=== PATIENT | female | born 1970 | race Caucasian/White ===

== ENCOUNTER 2018-09-02 21:51 | Emergency (ER) | payer OTHER, SELFPAY ==
[2018-09-02 21:54] VITALS: BP 128/80; PULSE 102; RESP 20; TEMP 36.8; O2SAT 99
[2018-09-02 21:56] VITALS: PULSE 102; RESP 20; TEMP 36.8; O2SAT 99; BMI 39.0
[2018-09-02] MEDS: ALBUTEROL/IPRATROPIUM 3 ML AMPUL INH ×2 (22:04→23:10)
[2018-09-02 22:05] VITALS: PULSE 100; RESP 20; O2SAT 99
--- NOTE | 2018-09-02 22:09 | ED_ITS ---
HPI - URI/Sore Throat General Chief Complaint: Upper Respiratory Symptoms Stated Complaint: Asthma Time Seen by Provider: 09/02/18 21:55 Source: patient Mode of arrival: ambulatory Limitations: no limitations History of Present Illness HPI Narrative: Patient is a 48-year-old female with a history of asthma who uses daily inhalers and occasional rescue inhaler here for evaluation of wheezing which she describes as an asthma exacerbation. She states the symptoms started approximately 5 days ago but has been worsening since then. She has been using her home inhalers and nebulizer without much improvement. No fevers. Has a nonproductive cough. Has been hospitalized in the past for her asthma but no prior intubations. Related Data Home Medications Medication Instructions Recorded Confirmed AZELASTINE HYDROCHLORIDE (ASTELIN) 2 puff UNK BID #0 01/18/11 esomeprazole magnesium [Nexium] 40 mg PO BID #0 01/18/11 fexofenadine 180 mg PO Q DAY #0 01/18/11 fluticasone 2 spray INTRANASAL BID #0 01/18/11 fluticasone-salmeterol [Advair 1 puff BIDRT #0 01/18/11 Diskus] levalbuterol tartrate [Xopenex HFA] 1 puff INH PRN #0 01/18/11 montelukast [Singulair] 10 mg PO QDAY #0 01/18/11 olopatadine [Patanol] 5 ml OP PRN #0 01/18/11 Previous Rx's Medication Instructions Recorded dexamethasone 12 mg PO .once #3 tab 09/03/18 Allergies Allergy/AdvReac Type Severity Reaction Status Date / Time Penicillins Allergy Mild Verified 09/02/18 22:13 Sulfa (Sulfonamide Allergy Mild Verified 09/02/18 22:13 Antibiotics) Review of Systems Constitutional Denies fatigue, Denies fever(s) and Denies headache(s) ENT Ears, Nose, Mouth, and Throat: Denies headache(s) Cardiovascular Denies chest pain and Reports dyspnea Respiratory Reports cough, Denies excessive phlegm production, Reports dyspnea and Reports wheezing Gastrointestinal Gastrointestinal: Denies abdominal pain, Denies nausea and Denies vomiting Musculoskeletal Denies myalgias and Denies arthralgias Integumentary/Breasts Denies rash Neurologic Denies headache(s) Endocrine Denies fatigue Hematologic/Lymphatic Comments: Not on anticoagulation Allergic/Immunologic Denies urticaria and Reports wheezing PFSH Medical History Asthma (Acute) Surgical History History of ankle surgery (Acute) Social History lives independently: Yes Smoking Status: Never smoker Exam Initial Vital Signs Initial Vital Signs: Vital Signs Temperature 98.3 F 09/02/18 21:54 Pulse Rate 102 H 09/02/18 21:54 Respiratory Rate 20 09/02/18 21:54 Blood Pressure 128/80 09/02/18 21:54 Pulse Oximetry 99 09/02/18 21:54 Const General: cooperative, well developed, well groomed and No acute distress Orientation: alert, awake and oriented x3 HENMT Head: normal to inspection, normocephalic and atraumatic Resp Effort & Inspection: cough, no grunting, labored, no retractions, tachypneic and no use of accessory muscles Auscultation: wheezes expiratory wheezes, lower bilaterally and upper bilaterally Cardio Rate: tachycardic Rhythm: regular rhythm Pulses: radial pulses present GI Inspection: non-distended Palpation: soft Skin General: no rashes or lesions noted Lesions: no lesions Rashes: no rashes Neuro General: alert, awake and oriented x3 Extrem General: normal to inspection and capillary refill normal Psych Appearance: grossly normal and well kempt Course Orders Ordered: Discontinued Medications Albuterol/Ipratropium (Duoneb) 3 ml INH NOW ONE Stop: 09/02/18 22:03 Last Admin: 09/02/18 22:04 Dose: 3 ml Albuterol/Ipratropium (Duoneb) 3 ml INH NOW ONE Stop: 09/02/18 22:10 Albuterol/Ipratropium (Duoneb) 3 ml INH NOW ONE Stop: 09/02/18 22:11 Last Admin: 09/02/18 22:31 Dose: Albuterol/Ipratropium (Duoneb) 3 ml INH NOW ONE Stop: 09/02/18 23:11 Last Admin: 09/02/18 23:10 Dose: 3 ml Dexamethasone (Decadron) 10 mg PO NOW ONE Stop: 09/02/18 22:10 Last Admin: 09/02/18 22:46 Dose: 10 mg Vital Signs - 8 hr 09/02/18 21:54 09/02/18 21:56 09/02/18 22:05 Temperature 98.3 F 98.3 F Pulse Rate 102 H 102 H 100 H Respiratory Rate 20 20 20 Blood Pressure Blood Pressure [Right Arm] 128/80 Pulse Oximetry 99 99 99 09/03/18 00:18 Temperature Pulse Rate 118 H Respiratory Rate 18 Blood Pressure 124/78 Blood Pressure [Right Arm] Pulse Oximetry 97 MDM - URI/Sore Throat MDM Narrative Medical decision making narrative: patient was given nebulizers and steroids here in the emergency department. She states that she felt much better after the administration of these medications. Patient is afebrile. Her lungs are clear after the nebulizer. Has a nonproductive cough. Will hold on a chest x- ray is I feel that pneumonia is unlikely. Patient has inhalers at home. No need for antibiotics. She was given return precautions. Will send home with a prescription for Decadron to taking 36 hr. She was given return precautions. She expressed understanding and agreement with this plan. Discharge Plan Departure Patient Disposition: Home Clinical Impression: Asthma exacerbation Discharge Date/Time: 09/03/18 00:19 Interventions: ED Discharge Assessment Last Done: 09/03/18 00:18 Instructions: Asthma -- Adult Activity Restrictions/Additional Instructions: take all of the medication as directed. Call your primary care doctor for follow-up. Use your home nebulizers as directed. Return to the emergency department for any new or worsening symptoms Prescriptions: New dexamethasone 4 mg tablet 12 mg PO .once Qty: 3 RF: 0 No Action fexofenadine 180 MG tablet 180 mg PO Q DAY Qty: 0 RF: 0 fluticasone 16 GM spray,suspension 2 spray Intranasal BID Qty: 0 RF: 0 AZELASTINE HYDROCHLORIDE (ASTELIN) 2 puff UNK BID Qty: 0 RF: 0 fluticasone-salmeterol [Advair Diskus] 500 MCG/50 MCG blister with device 1 puff BIDRT Qty: 0 RF: 0 montelukast [Singulair] 10 MG tablet 10 mg PO QDAY Qty: 0 RF: 0 levalbuterol tartrate [Xopenex HFA] 45 MCG/INH HFA aerosol inhaler 1 puff INH PRN Qty: 0 RF: 0 olopatadine [Patanol] 5 ML drops 5 ml OP PRN Qty: 0 RF: 0 esomeprazole magnesium [Nexium] 40 MG capsule,delayed release(DR/EC) 40 mg PO BID Qty: 0 RF: 0 Stand Alone Forms: Work/School Restrictions
[2018-09-02] MEDS: DEXAMETHASONE 10 MG/ML VIAL PO (22:46)
[2018-09-03 00:18] VITALS: BP 124/78; PULSE 118; RESP 18; O2SAT 97
== END 2018-09-03 00:19 | disposition home or self-care (01) ==
PROVIDERS: Emergency Provider Emergency Medicine; Family Provider Otolaryngology
DX: J45.901 Unspecified asthma with (acute) exacerbation (principal)
CPT/HCPCS: 94150; 94640; 99283; J1100

== ENCOUNTER → 2020-11-03 07:36 | Outpatient (CLI) | payer OTHER, SELFPAY ==
--- NOTE | 2020-11-03 | DI.NM.S_ITS ---
PROCEDURE: NM GASTRIC EMPTYING STUDY RADIOPHARMACEUTICAL: 1.0 mCi Tc-99m sulfur colloid in an egg sandwich. INDICATIONS: Dysphagia, pharyngoesophageal phase,Functional dys TECHNIQUE: A Tc-99m labeled sulfur colloid labeled egg sandwich or oatmeal was served to the patient. Anterior and posterior planar images of the abdomen were obtained at 0 minutes and 30 minutes, then at hourly intervals up to 4 hours. The patient was upright and ambulating during the interval. COMPARISON: None. FINDINGS: The stomach has normal size, morphology, and position. There is normal emptying of solid gastric contents from the stomach by visual inspection. No gastroesophageal reflux is visualized. The percentage of tracer retained at specific time points are as follows: Time point Percent gastric retention Normal range 30 minutes 70% 70% or more 1 hour 51% 30% to 90% 2 hours 35% 60% or less 3 hours 21% 30% or less 4 hours 0% 10% or less IMPRESSION: Gastric emptying is within normal limits. Dictated by: Annita Euceda M.D. on 11/03/2020 at 15:27 Approved by: Annita Euceda M.D. on 11/03/2020 at 15:33
== END ==
PROVIDERS: Family Provider Otolaryngology; Referring Provider Physician Assistant; Visit Provider Physician Assistant
DX: R13.14 Dysphagia, pharyngoesophageal phase (principal); K30 Functional dyspepsia
CPT/HCPCS: 78264; A9541

== ENCOUNTER → 2024-03-23 14:15 | Outpatient (CLI) | payer OTHER, SELFPAY ==
--- NOTE | 2024-03-23 | PATH_ITS ---
[facility] Accession Number: [id number] No. of containers..01 Tissue . 01 Material submitted: . breast - LEFT BREAST . 01 Diagnosis: LEFT BREAST MASS: Benign breast parenchyma with fibroadenomatous features and focal mammary duct ectasia. Negative for epithelial atypia or malignancy. CARLOS 03/25/2024 1117 Local . 01 Comment: As part of routine quality assurance inspector, this case was also reviewed by Dr. Cotton, who agrees with the interpretation. . 01 Electronically signed: . Belinda Nelson MD, Pathologist NPI- [id number] . 01 Gross description: . Received in formalin with two identifiers and no additional designation, are multiple yellow-maya to red-brown soft tissue fragments aggregating to 2.2 x 1.0 x 0.2 cm. Inked blue, filtered, and submitted entirely in cassette A1. . The specimen was removed on 03/23/2024 at 1529 hours, time in formalin not provided, cold ischemic time cannot be calculated, total fixation time is approximately 26 hours. ([id number]) /CARLOS 03/24/2024 0831 Local . 01 Pathologist provided ICD-10: N60.49 . 01 CPT . 008383 Performed at: [address] [facility], [place], [place] [id number] MD Jairon Koch MD Phone: [phone]
--- NOTE | 2024-03-23 | DI.MG.S_ITS ---
UNILATERAL LEFT DIGITAL DIAGNOSTIC MAMMOGRAM POST-PROCEDURE IMAGING FOR MARKER PLACEMENT: 03/23/2024 CLINICAL: Post left breast ultrasound biopsy, clip placment imaging. Comparison is made to exams dated: 03/09/2024 mammogram - [facility], 12/11/2017 mammogram, and 01/04/2023 mammogram - [facility]. There are scattered areas of fibroglandular density in the left breast (category b / 25%-50% glandular tissue). There is a marker clip is slightly anterior to the biopsied mass. 10 o'clock, middle depth central to the nipple seen on the craniocaudal view only. IMPRESSION: POST PROCEDURE MAMMOGRAM FOR MARKER PLACEMENT There was a successful marker clip placement in the left breast middle depth central to the nipple seen on the craniocaudal view only. Based on the Tyrer Cuzick model (a risk assessment model) the patient's lifetime risk is 6.8% and her 10 year risk is 1.8%. According to the ACR, ACS, and NCCN guidelines, an annual breast MRI exam along with mammogram is recommended if the patient's lifetime risk is 20% or greater. This exam was interpreted at Station ID: [id number]. NOTE: For mammograms, a report in lay terms will be sent to the patient. Approximately 15% of breast malignancies will not be visualized mammographically. In the management of a palpable breast mass, a negative mammogram must not discourage biopsy of a clinically suspicious lesion. Electronically Signed By: Annita Euceda M.D. [facility]/:03/24/2024 15:04:49 Entry: - 03/24/2024 15:04:49 ACR BI-RADS Category Post-procedure mammogram for marker placement
--- NOTE | 2024-03-23 14:17 | DI.US.S_ITS ---
ULTRASOUND GUIDED BIOPSY LEFT BREAST USING VACUUM DEVICE WITH MARKING DEVICE INSERTED AND POST MAMMOGRAPHIC IMAGIN03/23/2024 CLINICAL: Post left breast ultrasound biopsy, clip placement imaging. PATIENT CONSENT: Risks (minor bleeding, infection, vasovagal reaction and repeat procedure), benefits and alternatives were explained to the patient and written informed consent was obtained. Correlation is made to exams dated: 03/23/2024 mammogram - [facility], 03/09/2024 ultrasound, 03/09/2024 mammogram - [facility], and 01/04/2023 mammogram - [facility]. An ultrasound guided biopsy using real-time ultrasound was performed for the indistinct irregular shaped mass located in the left breast at 10 o'clock middle depth. This was described on the previous mammography and ultrasound reports. The skin was prepped in the usual manner. Local anesthetic was administered to the access site. A skin med was made in the breast. The abnormality was approached from the lateral aspect. A biopsy needle was placed adjacent to the abnormality under ultrasound guidance. Once the needle was documented to be in the correct location, a specimen was obtained using the Mammotome biopsy system. The patient received additional topical anesthetic during the procedure. An ImarC clip was inserted into the biopsy cavity. A sterile dressing was applied to the access site. Post procedure mammographic imaging was obtained. The specimen was sent to the laboratory for pathological analysis. IMPRESSION: ULTRASOUND GUIDED BIOPSY BENIGN Ultrasound guided biopsy of the mass in the left breast at 10 o'clock middle depth was successful. Pathology indicates benign ductal ectasia (DE) and fibroadenomatoid changes. Pathology results are concordant with imaging findings. A follow-up left mammogram and a left ultrasound in 6 months is recommended to demonstrate stability. This exam was interpreted at Station ID: [id number]. Annita Farah M.D. [facility],aty/:03/30/2024 08:03:25
== END ==
PROVIDERS: Family Provider Otolaryngology; PCP Physician Assistant; Referring Provider Nurse Practitioner Family; Visit Provider Nurse Practitioner Family
DX: R92.8 Other abnormal and inconclusive findings on diagnostic imaging of breast (principal); N60.42 Mammary duct ectasia of left breast; N63.22 Unspecified lump in the left breast, upper inner quadrant; R92.322 Mammographic fibroglandular density, left breast
CPT/HCPCS: 19083; 77065

== ENCOUNTER → 2024-04-25 15:11 | Outpatient (CLI) | payer OTHER, SELFPAY ==
--- NOTE | 2024-04-25 | DI.US.S_ITS ---
PROCEDURE: US AXILLARY ONLY LT COMPARISON: None. INDICATIONS: SUBCUTANEOUS MASS IN LEFT AXILLA FINDINGS: There is a 1.9 x 0.9 x 0.7 cm oval, hyperechoic mass in the left axilla which correlates with palpable area of concern/pain. There is suggestion of a thin and uniform cortex surrounding this hyperechoic focus with vascular fatty hilum. IMPRESSION: 1.9 cm oval hyperechoic mass possibly representing a reactive lymph node. Other etiologies include fat necrosis versus lipoma. Recommend follow-up ultrasound in 3-6 months to document stability versus resolution. Dictated by: Mark Farah M.D. on 04/26/2024 at 19:58 Approved by: Mark Farah M.D. on 04/26/2024 at 20:03
== END ==
PROVIDERS: Family Provider Otolaryngology; PCP Physician Assistant; Referring Provider Physician Assistant; Visit Provider Physician Assistant
DX: R22.2 Localized swelling, mass and lump, trunk (principal)
CPT/HCPCS: 76882

== ENCOUNTER → 2024-06-01 08:29 | Outpatient (CLI) | payer OTHER, SELFPAY ==
--- NOTE | 2024-06-01 08:30 | DI.US.S_ITS ---
ULTRASOUND OF RIGHT BREAST AND AXILLA: 06/01/2024 CLINICAL: Right axillary pain x months. Comparison is made to exams dated: 03/09/2024 mammogram - [facility], 01/04/2023 mammogram, 12/11/2017 mammogram, and 02/09/2015 mammogram - [facility]. Ultrasound of the right breast axilla was performed. No significant abnormalities were seen sonographically in the right axilla. IMPRESSION: NEGATIVE There is no sonographic evidence of malignancy. There is no abnormality seen in the right axilla to correspond with the area of clinical concern, however, clinical correlation and clinical followup are recommended. Please note also followup was recommended for the previous LEFT axillary finding. This exam was interpreted at Station ID: [id number]. Electronically Signed By: North Pastor M.D. lc/:06/01/2024 08:54:02 letter sent: Clinical Evaluation Ultrasound BI-RADS: 1 Negative
== END ==
PROVIDERS: Family Provider Otolaryngology; PCP Physician Assistant; Referring Provider Nurse Practitioner Family; Visit Provider Nurse Practitioner Family
DX: L04.9 Acute lymphadenitis, unspecified (principal); N63.32 Unspecified lump in axillary tail of the left breast
CPT/HCPCS: 76882

== ENCOUNTER 2025-09-05 19:35 | Emergency (ER) | payer OTHER, SELFPAY ==
[2025-09-05 19:59] VITALS: BP 135/91; PULSE 104; RESP 16; TEMP 37.2; O2SAT 97; BMI 37.2
--- NOTE | 2025-09-05 20:24 | ED.BACK ---
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 She states that she landed on her knees, is now feeling like she is having pain to her knees back neck. She denies any head strike, denies any LOC. Related Data Home Medications ?Medication ?Instructions ?Recorded ?Confirmed fexofenadine 180 mg tablet 180 mg PO Q DAY ##0 01/18/11 09/05/25 montelukast 10 mg tablet 10 mg PO QDAY ##0 01/18/11 09/05/25 (Singulair) lisinopril 5 mg tablet 5 mg PO DAILY 04/24/21 09/05/25 rabeprazole 20 mg tablet,delayed 20 mg PO DAILY 04/24/21 09/05/25 release rosuvastatin 20 mg tablet 20 mg PO DAILY 04/24/21 09/05/25 dulaglutide 1.5 mg/0.5 mL 3 mg SUBCUT QWEEK 11/07/21 09/05/25 subcutaneous pen injector (Trulicity) Previous Rx's ?Medication ?Instructions ?Recorded cyclobenzaprine 10 mg tablet 10 mg PO BEDTIME PRN muscle spasm 09/05/25 1 week #7 tabs Allergies Allergy/AdvReac Type Severity Reaction Status Date / Time Penicillins Allergy Mild Verified 09/05/25 19:58 Sulfa (Sulfonamide Allergy Mild Verified 09/05/25 19:58 Antibiotics) naproxen AdvReac Aggravates Verified 09/05/25 20:57 asthma clortrimazole Allergy Mild Uncoded 09/05/25 19:58 Review of Systems Review of Systems Narrative: General: Denies fever, chills, weight loss HEENT: Denies headache, eye drainage, eye irritation, head trauma, sore throat, voice change Cardiovascular: Denies any chest pain, palpitations, tachycardia Respiratory: Denies any shortness of breath, cough, wheeze, stridor GI/: Denies any abdominal pain, nausea, vomiting, diarrhea, bright red blood per rectum, melanotic stools, urinary frequency, urinary retention, dysuria, hematuria MSK: Positive knee pain, back pain, neck pain Skin: Denies any rashes, lesions, discoloration Neuro: Denies any headache, lightheadedness, dizziness, fainting, weakness Psych: Denies SI/HI Patient History Medical History Asthma (Unknown) Excessive daytime sleepiness (~2019) Fatigue due to sleep pattern disturbance (~2019) GERD (gastroesophageal reflux disease) (Unknown) Insomnia due to medical condition (~2019) Morbid obesity with body mass index (BMI) of 40.0 to 49.9 (Unknown) Nocturnal hypoxemia (~2020) Obstructive sleep apnea, adult (~2019) Elizabeth-menopausal Seasonal allergic rhinitis (Unknown) Snoring (Unknown) Type 2 diabetes mellitus (Unknown) Surgical History History of ankle surgery Social History (Updated 09/03/18 @ 03:49 by Vick Chester DO) lives independently: Yes education level: college (starting nursing school soon) Smoking Status: Former smoker Smoking Status: Former smoker tobacco type: cigarettes Exam Narrative Exam Narrative: General: Cooperative, well-developed, not in acute distress HEENT: Normocephalic, atraumatic, PERRLA, normal sclera, eyelids normal Neck: Active full range of motion, atraumatic Chest: Normal to inspection, negative crepitus, no overlying erythema ecchymosis Respiratory: Normal respiratory effort, not in acute respiratory distress, clear to auscultation bilaterally negative cough, wheeze, tachypnea, rhonchi, rales Cardiology: Regular rate rhythm negative gallop, murmur, rubs GI/: No tenderness to palpation, soft, non rigid, normal to inspection, exam deferred MSK: Full active range of motion in all 4 extremities, patient without any tenderness to palpation of the midline cervical thoracic lumbar spine patient with neurovascularly intact bilateral upper and lower extremities. Patient is able to stand bear weight ambulate immediately after. Skin: No rashes or lesions noted Neuro: Alert awake oriented x3, moves all 4 extremities spontaneously, cranial nerves intact, able to answer all questions appropriately follows commands appropriately Psych: Cooperative, negative suicidal or homicidal ideations Initial Vital Signs Initial Vital Signs: Vital Signs Temperature 98.9 F 09/05/25 19:59 Pulse Rate 104 H 09/05/25 19:59 Respiratory Rate 16 09/05/25 19:59 Blood Pressure 135/91 H 09/05/25 19:59 Pulse Oximetry 97 09/05/25 19:59 Oxygen Delivery Method Room Air 09/05/25 19:59 Course Orders Ordered: ED Orders 09/05/25 20:38 XR lumbar spine 2-3V Stat XR pelvis 1-2V Stat Discontinued Medications Acetaminophen (Acetaminophen 325 Mg Tablet) 650 mg PO NOW ONE Stop: 09/05/25 21:03 Last Admin: 09/05/25 21:05 Dose: 650 mg Documented By: MARITZA Ibuprofen (Ibuprofen 400 Mg Tablet) 400 mg PO NOW ONE Stop: 09/05/25 20:59 Last Admin: 09/05/25 21:05 Dose: Not Given Documented By: MARITZA Naproxen (Naproxen 250 Mg Tablet) 500 mg PO NOW ONE Stop: 09/05/25 20:39 Last Admin: 09/05/25 20:56 Dose: Not Given Documented By: MARITZA Vital Signs Vital signs: Vital Signs - 8 hr 09/05/25 19:59 Temperature 98.9 F Pulse Rate 104 H Respiratory Rate 16 Blood Pressure 135/91 H Pulse Oximetry 97 Oxygen Delivery Method Room Air MDM - Back Pain/Injury MDM Narrative Medical decision making narrative: 55-year-old female past medical history of diabetes type 2, hyperlipidemia, comes into the ED from home for evaluation of knee pain, back pain neck pain states that this happened when she was at work 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 Patient neurovascularly intact in bilateral upper and lower extremities she has no tenderness to palpation of the midline spine. Patient had imaging performed here of her lumbar spine and pelvis without any acute fractures. Patient will be sent home with symptomatic treatment, instructed follow up with primary care in outpatient setting, she verbalized understanding agrees to being discharged home with outpatient follow up Discharge Plan Departure Patient Disposition: Home Clinical Impression: Ground-level fall, Muscle strain Contusion, knee Qualifiers: Encounter type: initial encounter Laterality: unspecified laterality Qualified Code(s): S80.00XA - Contusion of unspecified knee, initial encounter Instructions: DI for Contusion Activity Restrictions/Additional Instructions: Please follow up with the primary care doctor, you may use ice for the next 3 days to help with symptoms Please read the discharge instructions sheet carefully and bring all papers to all doctor follow-up visits, as it may contain information that your doctor may want to see. Disease processes change and evolve, if your symptoms worsen or if you develop any new symptoms that are concerning to you please return for evaluation. Your evaluation today does not show any evidence of any life-threatening/serious illnesses requiring admission to the hospital or surgery. Please follow-up with your doctor for re-evaluation in approximately 1 day. Seek immediate medical attention for any worrisome symptoms. *If you do not have a primary care provider please contact the [facility] Resource line at [phone]. They will ask some questions about your medical history and help get you set up with a doctor in the community. Prescriptions: New cyclobenzaprine 10 mg tablet 10 mg PO BEDTIME PRN (Reason: muscle spasm) 7 Days Qty: 7 0RF No Action fexofenadine 180 MG tablet 180 mg PO Q DAY Qty: 0 montelukast [Singulair] 10 MG tablet 10 mg PO QDAY Qty: 0 rosuvastatin 20 mg tablet 20 mg PO DAILY rabeprazole 20 mg tablet,delayed release (DR/EC) 20 mg PO DAILY lisinopril 5 mg tablet 5 mg PO DAILY Trulicity 1.5 mg/0.5 mL pen injector 3 mg SUBCUT QWEEK Referrals: Dagoberto John PA-C [Primary Care Provider, Medical] Stand Alone Forms: Patient Portal/API, Work Release Note
--- NOTE | 2025-09-05 20:38 | DI.RAD.S_ITS ---
PROCEDURE: XR LUMBAR SPINE 2-3V INDICATIONS: pain s/p fall TECHNIQUE: 3 views of the lumbar spine were acquired. COMPARISON: None. FINDINGS: Bones: 5 [id number] vertebrae are present. There is normal bony alignment. No vertebral body compression fractures. No suspicious bony lesions. Soft tissues: Overlying bowel gas pattern is normal. No suspicious soft tissue calcifications. IMPRESSION: No acute bony abnormality. Dictated by: Nilesh Webb M.D. on 09/05/2025 at 23:17 Approved by: Nilesh Webb M.D. on 09/05/2025 at 23:18
--- NOTE | 2025-09-05 20:38 | DI.RAD.S_ITS ---
PROCEDURE: XR PELVIS 1-2V INDICATIONS: pain to right hip s/p fall TECHNIQUE: AP view(s) of the pelvis acquired. COMPARISON: None. FINDINGS: Bones: No fractures or dislocations. No suspicious bony lesions. Soft tissues: Visualized bowel gas pattern is normal. No suspicious soft tissue calcifications. Sacral nerve stimulator is present. IMPRESSION: No acute bony abnormality. Dictated by: Nilesh Webb M.D. on 09/05/2025 at 23:16 Approved by: Nilesh Webb M.D. on 09/05/2025 at 23:17
[2025-09-05] MEDS: ACETAMINOPHEN 325 MG TABLET 650 MG PO (21:05)
== END 2025-09-05 23:56 | disposition home or self-care (01) ==
PROVIDERS: Emergency Provider Student in an Organized Health Care Education/Training Program; Family Provider Otolaryngology; PCP Physician Assistant
DX: S80.02XA Contusion of left knee, initial encounter (principal); S80.01XA Contusion of right knee, initial encounter; M54.9 Dorsalgia, unspecified; M54.2 Cervicalgia; M25.551 Pain in right hip; W10.9XXA Fall (on) (from) unspecified stairs and steps, initial encounter; Y99.0 Civilian activity done for income or pay
CPT/HCPCS: 72100; 72170; 99283